=== PATIENT | female | born 1990 | race African-American/Black ===

== ENCOUNTER 2017-03-14 13:16 | Emergency (ER) | payer SELFPAY ==
--- NOTE | 2017-03-14 14:38 | EDM.PDOC ---
ED HPI GENERAL MEDICAL PROBLEM - General Chief Complaint: Neurological Problem Stated Complaint: TINGLIE FINGER TIPS/NUMB LITTLE TOE Time Seen by Provider: 03/14/17 13:33 Source of Information: Reports: Patient, RN Notes Reviewed - History of Present Illness INITIAL COMMENTS - FREE TEXT/NARRATIVE: Patient comes in with concerns about possibly being diabetic. She just has not been feeling well the last week or 2. States at times she feels a "fluttering sensation in her chest. She has had some numbness and tingling of the thumb and fingers of her right hand. She also has had a lot of tingling type discomfort of her right small toe. He states she is constantly thirsty and does drink a lot of water. He does admit to probably eating a somewhat unhealthy diet, she admits that she does eat a lot of chips but not too many carbs otherwise. No chest or abdominal pain. No nausea or vomiting. Right Feet Pain Score (Numeric/FACES): 0 - Related Data Allergies Allergy/AdvReac Type Severity Reaction Status Date / Time No Known Allergies Allergy Verified 03/14/17 13:34 Home Meds: Home Meds Lisinopril 10 mg PO DAILY #20 tablet 03/14/17 [Rx] Omeprazole Magnesium [Prilosec] 20 mg PO DAILY 03/14/17 [History] Past Medical History Genitourinary History: Reports: Other (See Below) Other Genitourinary History: LEEP surgery Endocrine/Metabolic History: Reports: Other (See Below) Other Endocrine/Metabolic History: family history of diabetes and thyroid issues Social & Family History - Tobacco Use Smoking Status *Q: Former Smoker Used Tobacco, but Quit: Yes Month Tobacco Last Used: 1 month - Caffeine Use Caffeine Use: Reports: Coffee, Tea - Recreational Drug Use Recreational Drug Use: No ED ROS GENERAL - Review of Systems Review Of Systems: See Below Constitutional: Denies: Fever, Chills, Diaphoresis HEENT: Reports: No Symptoms. Denies: Vertigo, Vision Change Respiratory: Denies: Shortness of Breath, Pleuritic Chest Pain Cardiovascular: Reports: Palpitations. Denies: Chest Pain GI/Abdominal: Denies: Abdominal Pain, Nausea, Vomiting Musculoskeletal: Denies: Joint Pain Skin: Reports: No Symptoms Neurological: Reports: Numbness (Priscila fingers of right hand and also right small toe). Denies: Trouble Speaking, Difficulty Walking, Weakness ED EXAM, DIZZINESS - Physical Exam Exam: See Below General Appearance: Alert Eye Exam: Bilateral Eye: PERRL Nose: Normal Inspection Throat/Mouth: Normal Inspection, Normal Oropharynx Neck: Supple Respiratory/Chest: No Respiratory Distress, Lungs Clear, Normal Breath Sounds Cardiovascular: Regular Rate, Rhythm GI/Abdominal: Soft, Non-Tender Neurological: Alert, No Motor/Sensory Deficits, Oriented x 3 Back Exam: No: CVA Tenderness (L), CVA Tenderness (R) Extremities: Normal Inspection, Normal Range of Motion. No: Pedal Edema, Leg Pain Skin Exam: Warm, Dry, Normal Color Course - Vital Signs Last Recorded V/S: Last Vital Signs Temp 97.5 F 03/14/17 13:28 Pulse 87 03/14/17 13:28 Resp 20 03/14/17 13:28 BP 160/111 H 03/14/17 16:15 Pulse Ox 100 03/14/17 13:28 - Orders/Labs/Meds Labs: Laboratory Tests 03/14/17 03/14/17 Range/Units 14:14 14:14 WBC 3.44 L (3.98-10.04) K/mm3 RBC 4.62 (3.98-5.22) M/mm3 Hgb 12.3 (11.2-15.7) gm/L Hct 38.7 (34.1-44.9) % MCV 83.8 (79.4-94.8) fl MCH 26.6 (25.6-32.2) pg MCHC 31.8 L (32.2-35.5) g/dl RDW Std Deviation 44.8 (36.4-46.3) fL Plt Count 289 (182-369) K/mm3 MPV 8.7 L (9.4-12.3) fl Neut % (Auto) 56.4 (34.0-71.1) % Lymph % (Auto) 33.7 (19.3-51.7) % [place] % (Auto) 8.1 (4.7-12.5) % Eos % (Auto) 1.2 (0.7-5.8) Baso % (Auto) 0.3 (0.1-1.2) % Neut # (Auto) 1.94 (1.56-6.13) K/mm3 Lymph # (Auto) 1.16 L (1.18-3.74) K/mm3 [place] # (Auto) 0.28 (0.24-0.36) K/mm3 Eos # (Auto) 0.04 (0.04-0.36) K/mm3 Baso # (Auto) 0.01 (0.01-0.08) K/mm3 Sodium 142 (136-145) mEq/L Potassium 3.5 (3.5-5.1) mEq/L Chloride 106 (98-107) mEq/L Carbon Dioxide 25 (21-32) mEq/L Anion Gap 14.5 (5-15) BUN 9 (7-18) mg/dL Creatinine 0.6 (0.55-1.02) mg/dL Est Cr Clr Drug Dosing 122.69 mL/min Estimated GFR (MDRD) > 60 (>60) mL/min BUN/Creatinine Ratio 15.0 (14-18) Glucose 100 (74-106) mg/dL Calcium 8.7 (8.5-10.1) mg/dL Total Bilirubin 0.4 (0.2-1.0) mg/dL AST 24 (15-37) U/L ALT 24 (14-59) U/L Alkaline Phosphatase 67 (46-116) U/L Total Protein 7.4 (6.4-8.2) g/dl Albumin 3.4 (3.4-5.0) g/dl Globulin 4.0 gm/dL Albumin/Globulin Ratio 0.9 L (1-2) TSH 3rd Generation 0.886 (0.358-3.74) uIU/mL Meds: Medications Discontinued Medications Generic Name Dose Route Start Last Admin Trade Name Freq PRN Reason Stop Dose Admin Lisinopril 10 mg 03/14/17 16:00 03/14/17 16:15 Prinivil PO 03/14/17 16:01 10 mg ONETIME ONE Administration - Re-Assessments/Exams Free Text/Narrative Re-Assessment/Exam: 03/14/17 17:16. Blood sugar came back fine at 100. Other labs also relatively normal. Of main concern her initial blood pressure was extremely high with repeat blood pressures also quite elevated, especially for her diastolic readings. She did eventually come down to about 154/108. We did give a dose of lisinopril 10 mg by mouth and prescription provided to continue at that dosage daily. Did discuss diet, exercise, follow-up for complete physical and the long- term risk of allowing her blood pressure to run elevated like it was on arrival untreated. Discharge instructions as documented. Departure - Departure Time of Disposition: 16:07 Disposition: Home, Self-Care 01 Condition: Fair Clinical Impression: Hypertension Qualifiers: Hypertension type: essential hypertension Qualified Code(s): I10 - Essential ( primary) hypertension - Discharge Information Prescriptions: Lisinopril 10 mg PO DAILY #20 tablet Instructions: Hypertension, [id number] Referrals: PCP,None [Primary Care Provider] - Forms: ED Department Discharge Additional Instructions: Avoid salty foods as best you can, avoid flour and sugar foods as best you can, eat plenty of fruit and vegetables. Begin a regular exercise program. [facility] membership at [facility] will help you do that. Research the Mediterranean diet which is strong in fish, poultry fruit and vegetables for a healthier diet. You can also research [facility] diet plans for more guidance. Follow-up at our [facility] clinic in about one week for a full physical, recheck. Call [phone] for appointment.Lisinopril 10 mg daily for hypertension.
[2017-03-14] MEDS ORDERED: Lisinopril 10 MG Tab PO ONE (16:00)
== END 2017-03-14 16:18 | disposition home or self-care (01) ==
LOC: JD.ED 13:16
DX: I10 Essential (primary) hypertension (principal); Z79.899 Other long term (current) drug therapy; Z87.891 Personal history of nicotine dependence
CPT/HCPCS: 36415; 80053; 84443; 85025; 99284; A9270; 99283